=== PATIENT | male | born 1945 | race Caucasian/White ===

== ENCOUNTER 2019-01-14 14:09 | Outpatient (CLI) | payer MEDICARE ==
--- NOTE | 2019-01-15 09:39 | RAD ---
CHEST 2 VIEWS: Date: 01/14/19 HISTORY: Acute bronchitis. COMPARISON: 02/20/17. FINDINGS: Exam is from the Taken List and submitted for official interpretation on 01/15/19 at 0933 hours . Normal cardiac silhouette. Pulmonary vessels and hilum are normal. Costophrenic angles are clear. Kyra gs are hyperinflated with chronic changes. No masses or consolidation. No pneumothorax or osseous abn ormalities. IMPRESSION: Chronic changes. Hyperinflation. COPD. POS: [facility]
== END 2019-01-14 14:10 | disposition home or self-care (01) ==
LOC: SCSRAD 14:09
PROVIDERS: ATTEND Family Medicine
DX: J20.9 Acute bronchitis, unspecified (principal); J44.9 Chronic obstructive pulmonary disease, unspecified; R91.8 Other nonspecific abnormal finding of lung field
CPT/HCPCS: 71046